=== PATIENT | male | born 1945 | race Caucasian/White ===

== ENCOUNTER → 2017-09-20 13:58 | Outpatient (CLI) | payer OTHER, SELFPAY ==
[2017-09-20 14:34] LABS: Add Manual Diff / Slide Review NO; Eosinophils Percent Auto 6.5 % (2-4); Hematocrit 42.2 % (41-53); Hemoglobin 14.9 g/dL (13.5-17.5); Lymphocytes Percent Auto 29.1 % (25-40); Mean Corpuscular HGB Conc 35.2 % (30-36); Mean Corpuscular Hemoglobin 34.4 PG (26-34); Mean Corpuscular Volume 97.7 fL (80-100); Monocytes Percent Auto 11.9 % (3-14); Neutrophils Absolute Auto 2700 /uL (3000-5900); Neutrophils Percent Auto 51.5 % (50-75); Platelet Count 204 X10^3/uL (150-400); Red Blood Cell Count 4.32 X10^6/uL (4.5-5.9); Red Cell Distribution Width 12.7 % (11.6-14.8); White Blood Cell Count 5.2 X10^3/uL (4.5-11.0)
[2017-09-20 14:52] LABS: Alanine Aminotransferase 37 IU/L (21-72); Albumin 4.4 g/dL (3.5-5.0); Albumin Globulin Ratio 1.4 (1.0-2.8); Alkaline Phosphatase 51 U/L (38-126); Aspartate Aminotransferase 29 IU/L (17-59); BUN Creatinine Ratio 33.3 (6-22); Bilirubin Total 0.8 mg/dL (0.2-1.3); Blood Urea Nitrogen 20 mg/dL (9-20); Calcium 9.6 mg/dL (8.4-10.2); Carbon Dioxide 24 mmol/L (22-32); Chloride 92 mmol/L (98-107); Estimated Glomerular Filt Rate > 60.0 mL/min (>60); Globulin 3.2 g/dL (1.7-4.1); Glucose 95 mg/dL (80-110); HEMOLYSIS < 15 (0-50); Potassium 3.8 mmol/L (3.4-5.1); Sodium 129 mmol/L (137-145); Total Protein 7.6 g/dL (6.3-8.2)
[2017-09-20 14:56] LABS: Rheumatoid Factor < 8.6 IU/mL (<12.0)
[2017-09-20 16:01] LABS: C-Reactive Protein Quant < 0.5 mg/dL (<1.0)
[2017-09-20 16:44] LABS: Erythrocyte Sedimentation Rate 8 MM/HR (0-15)
[2017-09-22 15:51] LABS: Free Kappa Light Chain 88.4 mg/L (3.3-19.4); Free Kappa/ Lambda Ratio 6.28 (0.26-1.65); Free Lambda 14.1 mg/L (5.7-26.3)
[2017-09-23 13:32] LABS: Albumin 4.3 g/dL (3.8-4.8); Alpha 1 Globulin 0.3 g/dL (0.2-0.3); Alpha 2 Globulin 0.6 g/dL (0.5-0.9); Beta 1 Globulin 0.5 g/dL (0.4-0.6)
== END ==
PROVIDERS: Family Provider Internal Medicine; PCP Internal Medicine; Visit Provider Nurse Practitioner Gerontology
DX: D47.2 Monoclonal gammopathy (principal)
CPT/HCPCS: 36415; 80053; 83883; 84155; 84165; 85025; 85651; 86140; 86430

== ENCOUNTER → 2018-03-19 14:05 | Outpatient (CLI) | payer OTHER, SELFPAY ==
[2018-03-19 15:17] LABS: Add Manual Diff / Slide Review NO; Basophils Percent Auto 0.9 % (0-2); Eosinophils Percent Auto 5.8 % (2-4); Hematocrit 42.4 % (41-53); Hemoglobin 14.8 g/dL (13.5-17.5); Lymphocytes Percent Auto 21.5 % (25-40); Mean Corpuscular HGB Conc 34.8 % (30-36); Mean Corpuscular Hemoglobin 34.3 PG (26-34); Mean Corpuscular Volume 98.3 fL (80-100); Monocytes Percent Auto 9.4 % (3-14); Neutrophils Absolute Auto 3900 /uL (3000-5900); Neutrophils Percent Auto 62.4 % (50-75); Platelet Count 210 X10^3/uL (150-400); Red Blood Cell Count 4.32 X10^6/uL (4.5-5.9); Red Cell Distribution Width 12.2 % (11.6-14.8); White Blood Cell Count 6.2 X10^3/uL (4.5-11.0)
[2018-03-19 15:41] LABS: HEMOLYSIS < 15 (0-50)
[2018-03-19 15:48] LABS: Alanine Aminotransferase 31 IU/L (21-72); Albumin 4.5 g/dL (3.5-5.0); Albumin Globulin Ratio 1.6 (1.0-2.8); Alkaline Phosphatase 45 U/L (38-126); Aspartate Aminotransferase 27 IU/L (17-59); BUN Creatinine Ratio 23.3 (6-22); Bilirubin Total 0.9 mg/dL (0.2-1.3); Blood Urea Nitrogen 21 mg/dL (9-20); Calcium 9.6 mg/dL (8.4-10.2); Carbon Dioxide 24 mmol/L (22-32); Chloride 93 mmol/L (98-107); Estimated Glomerular Filt Rate > 60.0 mL/min (>60); Globulin 2.9 g/dL (1.7-4.1); Glucose 96 mg/dL (80-110); Potassium 4.1 mmol/L (3.4-5.1); Sodium 130 mmol/L (137-145); Total Protein 7.4 g/dL (6.3-8.2)
[2018-03-19 15:49] LABS: C-Reactive Protein Quant < 0.5 mg/dL (<1.0)
[2018-03-19 15:51] LABS: Rheumatoid Factor < 8.6 IU/mL (<12.0)
[2018-03-19 16:06] LABS: Erythrocyte Sedimentation Rate 7 MM/HR (0-15)
[2018-03-21 13:58] LABS: Free Kappa Light Chain 105.5 mg/L (3.3-19.4); Free Kappa/ Lambda Ratio 7.46 (0.26-1.65); Free Lambda 14.1 mg/L (5.7-26.3)
[2018-03-22 16:25] LABS: Abnormal Protein Band 1 0.1 g/dL (NONE DETECTED); Alpha 1 Globulin 0.2 g/dL (0.2-0.3); Alpha 2 Globulin 0.6 g/dL (0.5-0.9); Beta 1 Globulin 0.5 g/dL (0.4-0.6); Protein, Total 6.7 g/dL (6.1-8.1)
== END ==
PROVIDERS: Family Provider Internal Medicine; PCP Internal Medicine; Visit Provider Internal Medicine Hematology & Oncology
DX: D47.2 Monoclonal gammopathy (principal)
CPT/HCPCS: 36415; 80053; 83883; 84155; 84165; 85025; 85651; 86140; 86430

== ENCOUNTER → 2019-04-23 13:44 | Outpatient (CLI) | payer OTHER, SELFPAY ==
[2019-04-23 14:25] LABS: Lactate Dehydrogenase 450 U/L (313-618)
[2019-04-25 15:13] LABS: Immunoglobulin A 268 mg/dL (70-320); Immunoglobulin G, Quantitative 1179 mg/dL (600-1540); Immunoglobulin M, Quantitative 55 mg/dL (50-300)
[2019-04-25 16:36] LABS: Free Kappa Light Chain 128.1 mg/L (3.3-19.4); Free Kappa/ Lambda Ratio 8.18 (0.26-1.65); Free Lambda 15.7 mg/L (5.7-26.3)
[2019-04-26 14:55] LABS: Beta-2-Microglobulin 2.42 mg/L (< 2.52)
[2019-04-27 17:21] LABS: Abnormal Protein Band 1 0.2 g/dL (NONE DETECTED); Alpha 1 Globulin 0.3 g/dL (0.2-0.3); Alpha 2 Globulin 0.8 g/dL (0.5-0.9); Beta 1 Globulin 0.5 g/dL (0.4-0.6)
== END ==
PROVIDERS: PCP Internal Medicine; Visit Provider Internal Medicine Hematology & Oncology
DX: D47.2 Monoclonal gammopathy (principal)
CPT/HCPCS: 36415; 82232; 82784; 83615; 83883; 84155; 84165

== ENCOUNTER → 2019-06-06 08:48 | Outpatient (CLI) | payer OTHER, SELFPAY ==
[2019-06-06 09:40] LABS: Blood Urea Nitrogen 12 mg/dL (9-20); Calcium 10.5 mg/dL (8.4-10.2); Carbon Dioxide 30 mmol/L (22-32); Chloride 94 mmol/L (98-107); Cholesterol 234 mg/dL (140-199); Estimated Glomerular Filt Rate > 60.0 mL/min (>60); Glucose 115 mg/dL (80-110); HEMOLYSIS < 15 (0-50); Potassium 4.8 mmol/L (3.4-5.1); Sodium 132 mmol/L (137-145); Triglycerides 81 mg/dL (35-150)
[2019-06-06 10:00] LABS: HDL Cholesterol 71 mg/dL (40-60); LDL Cholesterol Calculated 147 mg/dL (<100)
[2019-06-08 13:28] LABS: PSA Total 1.18 ng/mL (< 4.01)
== END ==
PROVIDERS: PCP Internal Medicine; Referring Provider Internal Medicine; Visit Provider Internal Medicine
DX: Z12.5 Encounter for screening for malignant neoplasm of prostate (principal); I10 Essential (primary) hypertension; E78.00 Pure hypercholesterolemia, unspecified
CPT/HCPCS: 36415; 80048; 80061; 84153; 84154

== ENCOUNTER → 2019-11-26 09:23 | Outpatient (CLI) | payer OTHER, SELFPAY ==
--- NOTE | 2019-11-26 09:24 | DI.US.S_ITS ---
PROCEDURE: US PERIPH VENOUS LOW EXTREM RT INDICATIONS: EDEMA TECHNIQUE: Real-time imaging, as well as color and pulse Doppler interrogation, were performed of the lower extremity deep veins from the inguinal ligament to the popliteal fossa. COMPARISON: None. FINDINGS: The common femoral, femoral and popliteal veins are normally compressible, and free of intraluminal thrombus. Color and pulse Doppler demonstrate normal phasic intraluminal flow. There is normal augmentation response to distal compression maneuver. IMPRESSION: No right lower extremity DVT. Dictated by: Brandon Peck M.D. on 11/26/2019 at 11:26 Approved by: Brandon Peck M.D. on 11/26/2019 at 11:27
== END ==
PROVIDERS: PCP Internal Medicine; Referring Provider Internal Medicine; Visit Provider Internal Medicine Hematology & Oncology
DX: D47.2 Monoclonal gammopathy (principal); R60.0 Localized edema
CPT/HCPCS: 93971

== ENCOUNTER → 2021-09-15 08:13 | Outpatient (CLI) | payer OTHER, SELFPAY ==
--- NOTE | 2021-09-15 | DI.RAD.S_ITS ---
PROCEDURE: FL BARIUM SWALLOW W SPEECH INDICATIONS: Dysphagia, unspecified COMPARISON: None. TECHNIQUE: Examination was conducted in conjunction with speech pathology per standard protocol. In the lateral projection, filming was performed of the patient swallowing. AP projection filming may also be performed with patient swallowing. COMPARISON: FINDINGS: Function: The oral preparatory phase appears normal, with proper containment. The subsequent oral propulsive phase, pharyngeal phase, and esophageal phase of swallowing also appear normal with all proffered substances. No laryngotracheal penetration or aspiration. No pathologic vallecular pooling. Morphology: No cricopharyngeal bar is identified. No cervical esophageal webs. No Zenker's diverticulum. Stricture with irregular margins is noted in the mid esophagus. The mid esophageal stricture impeded passage of 13 millimeter tablet. 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 Recommend gastroenterology consultation for endoscopy. Dictated by: Pratima Danielson MD, PhD on 09/15/2021 at 9:00 Approved by: Pratima Danielson MD, PhD on 09/15/2021 at 9:01
--- NOTE | 2021-09-15 16:38 | ST.SWALLOW ---
Visit Care Team Role Provider Type Misa Cowan MD Attending Provider Physician Primary Care Provider Referring Provider Specialty: Internal Medicine Address: [address] [place] [address], [id number] Email: [email or web address] Modified Barium Swallow Study CLEANING CUSTODIAN Modified Barium Swallow Study Start: 09/15/21 09:22 Freq: Status: Active Protocol: Document 09/15/21 09:22 ZS (Rec: 09/15/21 09:29 ZS [id number]) Modified Barium Swallow Study Total Time Visit Start Time 08:30 Visit Stop Time 09:00 Total Visit Minutes 30 Setting Setting Outpatient Care Patient Information Identification Type Name Patient History Orlando is a 76 year old male who reported a feeling of his throat constricting when he is swallowing. He reported solids are more difficult than liquids, with soup being difficult at the worst in early August. Pt reported this has been going on for months but improved recently with the discontinuation of a medication. Pt has a history of post-nasal drip with use of nasal spray and a left side thyroid nodule. Subjective Observations Pt was ambulatory, alert, and oriented. Provided information regarding procedure and process and pt agreed to participate. Patient Positioning Position View Lat-A/P Imaging Lateral View Textures Administered Trials Presented Thin Liquid via Cup,Pudding Thick Liquid via Spoon,Regular Textures Oral Phase Source: MBSIMP (TM) (C) Bolus Specific Scoring Grid Lip Closure No Impairment (WNL) Tongue Control During Bolus Hold Mild Impairment Bolus Prep/Mastication No Impairment (WNL) Bolus Transport/Lingual Motion No Impairment (WNL) A/P Lingual Propulsion Delay No Oral Residue Mild Impairment Residue Clearing No Impairment (WNL) Nasal Regurgitation No Additional Oral Phase Observations Pt exhibited no anterior loss of bolus, demonstrated mastication WNL, and a/p propulsion WNL. Mild oral residue observed following swallow, which pt cleared independently with second swallow. Pharyngeal Phase Source: MBSIMP (TM) (C) Bolus Specific Scoring Grid Delayed Initiation of Pharyngeal Swallow Yes: Head of bolus in valleculae Soft Palate Elevation No Impairment (WNL) Tongue Base Strength/Range of Motion No Impairment (WNL) Residue Along the Tongue Base No Laryngeal Elevation No Impairment (WNL) Anterior Hyoid Movement Mild Impairment Epiglottic Range of Motion No Impairment (WNL) Vallecular Residue Yes Clearance of Vallecular Residue WFL Laryngeal Vestibular Closure No Impairment (WNL) Pharyngeal Stripping Wave No Impairment (WNL) Upper Esophageal Sphincter Opening Mild Impairment Residue in the Pyriform Sinuses Yes Clearance of Residue in the Pyriform WFL Sinuses Esophageal Clearance Upright Position Severe Impairment Additional Pharyngeal Phase Observations Pt demonstrated delayed swallow initiation, with the head of the bolus in the valleculae at swallow initiation. Laryngeal vestibular closure was WNL despite reduced anterior hyoid movement. Mild reduction in PES opening, with retention of small quantity of bolus. Mild pharyngeal residue observed in valleculae and pyriforms, which pt cleared independently WFL with an additional swallow. A/P View Textures Administered Trials Presented Barium Tablet A/P View Observations Esophageal Function Slowed Clearing,Reverse Peristalsis,Stasis,Narrowing Esophageal Clearance Upright Position Severe Impairment Additional Observations Observed obstruction with bolus stationary and mild backflow below level of PES. Pt able to clear most of obstruction with several swallows of water. Completed trial with barium tablet, which was stopped at narrowing of esophagus and did not pass at the conclusion of the study. 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 Clinical Impressions Findings Pt presents with swallow WNL. Narrowing of esophagus observed, which negatively impedes flow of bolus to stomach. Per radiologist report: mid esophageal stricture with irregular margins highly suspicious for neoplastic process. Recommend GI referral for further imaging of stricture. Recommend thin liquid and regular solids. Alternate liquids and solids with small bites of solids to help increase comfort while eating. Patient Appropriate for Therapy No Recommendations Diet Liquids Order Thin Diet Order Regular Medication Recommendation As Tolerated Aspiration Precautions Recommended Precautions Upright at 90 Degrees, Alternate Liquids/Solids, Frequent Rest Periods,Small Bites/Sips Treatment Plan Recommended Referrals GI Consult Compensatory Strategies Recommendations Sitting Upright (90 deg),Small Bites and Sips,Alternate Liquids/Solids Placement Recommendation After Discharge Home
== END ==
PROVIDERS: PCP Internal Medicine; Referring Provider Internal Medicine; Visit Provider Internal Medicine
DX: K22.2 Esophageal obstruction (principal); R13.10 Dysphagia, unspecified
CPT/HCPCS: 74230; 92611

== ENCOUNTER → 2021-10-13 13:39 | Outpatient (CLI) | payer OTHER, SELFPAY ==
--- NOTE | 2021-10-13 13:42 | DI.RAD.S_ITS ---
PROCEDURE: XR CHEST 2V INDICATIONS: COUGH TECHNIQUE: 2 views of the chest were acquired. COMPARISON: None. FINDINGS: Surgical changes and devices: None. Lungs and pleura: Mild pulmonary vascular congestion is seen. No definite focal infiltrate. Blunting of bilateral pasta phrenic angles posteriorly is seen suggestive of trace bilateral pleural effusion. No pneumothorax. Mediastinum: Tortuous thoracic aorta with aortic arch calcifications are seen. Heart size is mildly enlarged. Bones and chest wall: No suspicious bony abnormalities. Soft tissues appear unremarkable. IMPRESSION: Cardiomegaly and mild congestion. Mild pulmonary edema. No definite focal infiltrate or pneumothorax. Suggestion of trace bilateral pleural effusion. Dictated by: Morgan Rg M.D. on 10/13/2021 at 15:15 Approved by: Morgan Rg M.D. on 10/13/2021 at 15:21
== END ==
PROVIDERS: PCP Internal Medicine; Referring Provider Internal Medicine; Visit Provider Internal Medicine
DX: I51.7 Cardiomegaly (principal); J81.1 Chronic pulmonary edema
CPT/HCPCS: 71046

== ENCOUNTER → 2021-11-05 07:56 | Outpatient (CLI) | payer OTHER, SELFPAY ==
--- NOTE | 2021-11-05 07:57 | DI.ECHO.S_ITS ---
[facility] +---------+ : : [address] : : : : [id number] : : : : Phone: [phone] Echocardiogram Report + + :Name: VY PALAFOX Study Date: 11/05/2021 Height: 64 in : [id number] ReadingLocation: Weight: 157 lb : : Gender: Male BSA: 1.8 m2 : :: 1945 Age: 76 yrs BP: 120/75 mmHg: :Reason For Study: Edema : :Ordering Physician: YUE, : :JONI Performed By: Michael Plunkett : :Referring: JONI TURNER : + + Interpretation Summary Normal sinus rhythm. Normal LV size, wall thickness, wall motion and LV systolic function. EF is 60-65%. Stage I diastolic dysfunction. Mild biatrial enlargement. No significant valvular abnormalities. No prior study available for comparison. Procedure: A two-dimensional transthoracic echocardiogram with color flow and Doppler was performed. The study quality was technically adequate. There is no prior echocardiogram noted for this patient. The patient was in normal sinus rhythm during the exam. Left Ventricle: The left ventricle is normal in size and wall thickness. Proximal septal thickening is noted. Left ventricular systolic function is normal. The ejection fraction is estimated to be 60-65%. There are no focal wall motion abnormalities. Diastolic parameters suggest a relaxation abnormality of the left ventricle, consistent with probable normal filling pressures. Right Ventricle: The right ventricle is normal in size and function. Atria: Both atria are mildly dilated. Right atrial size is normal. The interatrial septum grossly appears intact with no obvious evidence for an atrial septal defect. Mitral Valve: The mitral valve is normal in structure and function. There is mild mitral regurgitation. Aortic Valve: The aortic valve is normal in structure and function. There is trace aortic regurgitation. Tricuspid Valve: The tricuspid valve is normal in structure and function. There is a trace or physiologic amount of tricuspid regurgitation. Pulmonary artery pressures cannot be estimated because of the lack of a measurable TR jet velocity. Pulmonic Valve: The pulmonic valve is normal in structure and function. There is a trace or physiologic amount of pulmonic regurgitation. Great Vessels: The aortic root is normal size. The dimensions of the ascending aorta are normal. The IVC is of normal diameter and collapses greater than 50% with a sniff. This suggests a low right atrial pressure of 3 mm Hg. Pericardium/ Pleura There is no pericardial effusion. There is no pleural effusion. MMode/2D Measurements & Calculations LVIDd: 5.4 cm LVOT diam: 2.1 cm LVIDs: 3.2 cm Ao root diam: 3.4 cm FS: 40.8 % asc Aorta Diam: 3.4 cm IVSd: 0.97 cm LVPWd: 0.87 cm LV sorensen. diameter/BSA (cm/m^2): 3.0 LV sys. diameter/BSA (cm/m^2): 1.8 LA A2 area: 21.3 cm2 RA long axis: 5.6 cm LA A4 area: 24.1 cm2 RA area: 13.5 cm2 LA length (vol): 6.3 cm RA vol: 27.6 ml LA vol: 69.8 ml RA : 15.7 ml/m2 LA vol index: 39.5 ml/m2 TAPSE: 1.8 cm Doppler Measurements & Calculations Ao V2 max: 142.8 cm/sec LVOT Max Ronan: 122.7 cm/sec Ao V2 mean: 97.4 cm/sec LV V1 max P.0 mmHg Ao max P.2 mmHg LV V1 VTI: 24.2 cm Ao mean P.3 mmHg JEROME(I,D): 3.0 cm2 Ao V2 VTI: 29.3 cm JEROME(V,D): 3.1 cm2 sev ratio: 0.83 JEROME indexed to BSA (cm^2/m^2): 1.7 MV E max ronan: 46.5 cm/sec SV(LVOT): 87.4 ml MV A max ronan: 71.6 cm/sec MV E/A: 0.65 Med Peak E' Ronan: 5.2 cm/sec E/E' med: 9.0 Lat Peak E' Ronan: 10.7 cm/sec E/E' lat: 4.3 E/e' average: 6.6 MV dec time: 0.28 sec Electronically signed by: Xenia Morales M.D. on Reading Physician:11/06/2021 12:28 AM
== END ==
PROVIDERS: PCP Internal Medicine; Referring Provider Internal Medicine; Visit Provider Internal Medicine
DX: I34.0 Nonrheumatic mitral (valve) insufficiency (principal); J81.0 Acute pulmonary edema
CPT/HCPCS: 93306

== ENCOUNTER → 2022-02-02 14:39 | Outpatient (CLI) | payer OTHER, SELFPAY ==
[2022-02-02 17:34] LABS: COVID19 -Nasal RAPID Negative (Negative)
== END ==
PROVIDERS: PCP Family Medicine; Visit Provider Surgery
DX: Z20.822 Contact with and (suspected) exposure to COVID-19 (principal); Z01.812 Encounter for preprocedural laboratory examination
CPT/HCPCS: 87635; C9803

== ENCOUNTER 2022-02-03 14:04 | Day surgery (SDC) | payer OTHER, SELFPAY ==
--- NOTE | 2022-02-03 | PATH_ITS ---
[facility] Accession Number: [id number] No. of containers..02 Tissue . 01 Material submitted: . PART A: colon - ASCENDING COLON POLYP PART B: colon - TRANSVERSE COLON POLYP X2 . 01 Diagnosis: A. Ascending Colon, Polyp, Biopsy: Colonic mucosa with mild surface hyperplastic-type changes. Additional levels were examined. Negative for dysplasia and malignancy. . B. Transverse Colon, Polyp x2, Biopsy: Tubular adenoma in two of three fragments. Sessile serrated adenoma, one fragment. MRV 02/08/2022 1550 Local . 01 Electronically signed: . Teresa Myers MD, Pathologist NPI- [id number] . 01 Gross description: . Part A: ASCENDING COLON POLYP: Received in formalin are 2 fragment(s) of dahl, soft tissue measuring 0.1 x 0.1 x 0.1 cm to 0.3 x 0.2 x 0.2 cm submitted entirely in 1 cassette(s) Part B: TRANSVERSE COLON POLYP X2: Received in formalin are 3 fragment(s) of dahl, soft tissue measuring 0.1 x 0.1 x 0.1 cm to 0.4 x 0.4 x 0.2 cm submitted entirely in 1 cassette(s) /ALPHONSE 02/04/2022 2315 Local . 01 Pathologist provided ICD-10: D12.3 . 01 CPT . 692376, 514681 Specimen Comment: A courtesy copy of this report has been sent to [phone] Performed at: 01 [facility] [address] [place] [address] [address], [place], [place] [id number] MD Jak Holder MD Phone: [phone]
[2022-02-03 14:14] VITALS: BP 170/92; PULSE 77; RESP 16; TEMP 36.8; O2SAT 97; BMI 26.6
--- NOTE | 2022-02-03 14:45 | P.HP_ITS ---
History of Present Illness History of Present Illness Date Patient Seen: 02/03/22 Time Patient Seen: 14:45 Chief complaint: Colonoscopy Narrative: The patient presents for colorectal screening. Most recent colonoscopy 5 years ago significant for several benign polyps.. No personal or family history of colon cancer. On further history denies any recent gastrointestinal symptoms. No nausea, vomiting, abdominal pain, loss of appetite, unexplained weight loss, change in bowel habits, diarrhea, constipation, melena, hematochezia, or bright red blood per rectum. Patient History Medical History Glaucoma (~2009) Hyperlipidemia Hypertension (~2007) Surgical History Anesthesia History of colonoscopy (~2011) History of endoscopy (~2021) Family & Social History Family History Mother Congestive heart failure Social History: household members spouse Tobacco & Substance use: Smoking Status Former smoker alcohol intake current alcohol intake frequency 0-2 drinks per day Meds Home Medications and Allergies Home Medications Medication Instructions Recorded Confirmed Type amlodipine 5 mg tablet (Norvasc) 5 mg PO QDAY ##0 09/05/16 02/03/22 History latanoprost 0.005 % eye drops 1 drp OPHTH HS ##0 09/05/16 12/09/21 History timolol maleate 0.25 % eye drops 1 drp OPHTH BID ##0 09/05/16 02/03/22 History (Timoptic) lisinopril 40 mg tablet 40 mg PO DAILY 06/14/21 12/09/21 History rosuvastatin 5 mg tablet 5 mg PO DAILY 06/14/21 02/03/22 History omeprazole 40 mg capsule,delayed 40 mg PO BID 11/18/21 02/03/22 History release Allergies Allergy/AdvReac Type Severity Reaction Status Date / Time No Known Allergies Allergy Uncoded 02/03/22 14:34 Exam Vital Signs (past 8 hours): - 02/03/22 14:14 Temperature 98.2 F Pulse Rate 77 Respiratory Rate 16 Blood Pressure 170/92 H Pulse Oximetry 97 Oxygen Delivery Method Room Air Oxygen Delivery Method Room Air Narrative Exam Narrative: General adult male alert oriented no acute distress Chest nonlabored respiration Extremities warm well perfused Assessment & Plan Assessment & Plan narrative: The patient requires colorectal screening and colonoscopy is recommended. T echnical details were discussed. Risks, benefits, alternatives explained. Risks including but not limited to myocardial infarction, aspiration, bleeding, pain, missed lesion, incomplete examination, need for further radiographic studies, colonic perforation, and need for major abdominal surgery were discussed. All questions were answered to their satisfaction, and they are in agreement with this plan. Time Spent With Patient Critical Care time: I spent a total of [] minutes of critical care time on this patient's care today; this time is exclusive of procedural time.
--- NOTE | 2022-02-03 14:46 | PM.OP.COLON ---
Operative Date/Time/Diagnoses Date of procedure: 02/03/22 Time of procedure: 14:47 Pre-op diagnosis: Personal history of colonic polyps Post-op diagnosis: same Procedure & Clinicians Study performed: Colonoscopy Same procedure as scheduled: Yes Indications: Personal history of colonic polyps Surgeon: Emigdio Hernandes Procedure Notes Procedure in detail: Medications: Conscious sedation using 5mg IV midazolam and 150mcg IV of fentanyl The history and physical was performed/updated and the patient is ASA class is 2. The procedure was discussed in detail with the patient. Potential risks complications including infection, bleeding, missed diagnosis, perforation, need for surgery, and were explained. Their questions were answered and informed consent was obtained. Patient was brought to the procedure room and placed standard monitoring equipment. The patient's vital signs were monitored continuously throughout the entire procedure. Prior to starting time-out was performed. The patient was placed in the left lateral recumbent position. Procedural sedation was administered. Examination began with a thorough inspection of the perianal area there was no evidence of fissures, fistulae, external hemorrhoids or cutaneous malignancy. The colonoscopy scope was then placed into the anal canal and was advanced to the cecum, which was identified by the ileocecal valve, the appendiceal orifice and the confluence of the taenia. The scope was then slowly withdrawn examining colon thoroughly in all directions, irrigating it of any residual stool. FINDINGS 1. Ascending colon-3 mm polyp removed with biopsy forceps 2. Transverse: 3 mm polyps x2 removed with biopsy forceps. 3. Sigmoid extensive diverticulosis The patient tolerated the procedure well. They will be discharged once criteria are met. The prep was of good/excellent quality. The withdrawl time was 10 minutes. The sedation time was 25 minutes. Specimen(s): other (Transverse colon polyp x2, ascending colon polyp x1) Complications: none Impression: Colonic polyps Post-procedure Recommendations: High fiber diet and Will call with biopsy results Disposition: same day surgery
[2022-02-03] MEDS: LACTATED RINGERS 1,000 ML 200 ML IV (15:00)
[2022-02-03] MEDS: fentaNYL 100 MCG/2 ML INJ IV (15:23)
[2022-02-03] MEDS: MIDAZOLAM 5 MG/5 ML VIAL IV (15:23)
[2022-02-03 15:25] VITALS: BP 117/70; PULSE 61; RESP 16; TEMP 36.4; O2SAT 100
[2022-02-03 15:31] VITALS: BP 120/69; PULSE 59; RESP 16; O2SAT 100
[2022-02-03 15:36] VITALS: BP 125/75; PULSE 68; RESP 18; TEMP 36.5; O2SAT 98
[2022-02-03 15:44] VITALS: BP 125/75; PULSE 58; RESP 16; TEMP 37; O2SAT 97
== END 2022-02-03 15:57 | disposition home or self-care (01) ==
PROVIDERS: PCP Family Medicine; Referring Provider Surgery; Visit Provider Surgery
PROC: 0DJD8ZZ Inspection of Lower Intestinal Tract, Via Natural or Artificial Opening Endoscopic (ICD-10-PCS; CPT 45378; principal; 2022-02-03 15:15)
DX: Z12.11 Encounter for screening for malignant neoplasm of colon (principal); Z86.010 Personal history of colon polyps; I10 Essential (primary) hypertension; E78.5 Hyperlipidemia, unspecified; K57.30 Diverticulosis of large intestine without perforation or abscess without bleeding; D12.3 Benign neoplasm of transverse colon
CPT/HCPCS: 45380; 99152; 99153; J2250; J3010

== ENCOUNTER → 2022-06-02 08:55 | Outpatient (CLI) | payer OTHER, SELFPAY ==
[2022-06-02 09:49] LABS: Cholesterol 181 mg/dL (140-199); HDL Cholesterol 77 mg/dL (40-60); LDL Cholesterol Calculated 86 mg/dL (<100); Triglycerides 92 mg/dL (35-150)
[2022-06-02 10:18] LABS: Prostate Specific Antigen Scrn 0.839 ng/mL (0.1-4.0)
[2022-06-02 12:15] LABS: Creatinine Urine Random 25.3 mg/dL
[2022-06-02 12:19] LABS: Microalbumi Creatinin Ratio Ur 23.7 ug/mg CR (<30); Microalbumin Urine Random 0.6 mg/dL (0-1.6)
== END ==
PROVIDERS: PCP Family Medicine; Referring Provider Family Medicine; Visit Provider Family Medicine
DX: E78.2 Mixed hyperlipidemia (principal); Z12.5 Encounter for screening for malignant neoplasm of prostate; D47.2 Monoclonal gammopathy; I10 Essential (primary) hypertension
CPT/HCPCS: 36415; 80061; 82043; 82570; G0103

== ENCOUNTER 2022-08-03 11:57 | Day surgery (SDC) | payer OTHER, SELFPAY ==
--- NOTE | 2022-08-03 | PATH_ITS ---
[facility] Accession Number: [id number] No. of containers..06 Tissue . 01 Material submitted: . PART A: gastrointestinal site - GASTRIC BIOPSY AT 39CM PART B: gastrointestinal site - GASTRIC BIOPSY AT 37CM PART C: gastrointestinal site - GASTRIC BIOPSY AT 35;SCTRICTURE PART D: gastrointestinal site - GASTRIC BIOPSY AT 33CM PART E: gastrointestinal site - GASTRIC BIOPSY AT 31CM PART F: gastrointestinal site - GASTRIC BIOPSY AT 29cm . 01 Diagnosis: A-C. 39-35 cm, Biopsies: Proximal gastric mucosa with mild chronic inflammation. Negative for specialized intestinal metaplasia, dysplasia or malignancy. . D-F: 33-29 cm, Biopsies: Proximal gastric type mucosa with specialized intestinal metaplasia, consistent with Collins's esophagus. Negative for dysplasia or malignancy. [facility] 08/08/2022 1146 Local . 01 Electronically signed: . Jose Miguel Art MD, PhD, Pathologist NPI- [id number] . 01 Gross description: . Part A: GASTRIC BIOPSY AT 39CM: Received in formalin are 4 fragment(s) of dahl, soft tissue measuring 0.5 x 0.2 x 0.1 cm to 0.1 x 0.1 x 0.1 cm submitted entirely in 1 cassette(s) Part B: GASTRIC BIOPSY AT 37CM: Received in formalin are 2 fragment(s) of dahl, soft tissue measuring 0.3 x 0.2 x 0.2 cm to 0.2 x 0.2 x 0.2 cm submitted entirely in 1 cassette(s) Part C: GASTRIC BIOPSY AT 35;SCTRICTURE: Received in formalin are 2 fragment(s) of dahl, soft tissue measuring 0.4 x 0.1 x 0.1 cm to 0.2 x 0.2 x 0.1 cm submitted entirely in 1 cassette(s) Part D: GASTRIC BIOPSY AT 33CM: Received in formalin are 4 fragment(s) of dahl, soft tissue measuring 0.3 x 0.1 x 0.1 cm to 0.1 x 0.1 x 0.1 cm submitted entirely in 1 cassette(s) Part E: GASTRIC BIOPSY AT 31CM: Received in formalin are 4 fragment(s) of dahl, soft tissue measuring 0.4 x 0.1 x 0.1 cm to 0.2 x 0.1 x 0.1 cm submitted entirely in 1 cassette(s) Part F: GASTRIC BIOPSY AT 29cm: Received in formalin are 2 fragment(s) of dahl, soft tissue measuring 0.2 x 0.1 x 0.1 cm to 0.2 x 0.1 x 0.1 cm submitted entirely in 1 cassette(s) /CPE 08/04/2022 0717 Local . 01 Pathologist provided ICD-10: K22.70 . 01 CPT . 061751, 290463, 746079, 001826, 382904, 234457 Specimen Comment: A courtesy copy of this report has been sent to [phone] Performed at: 01 [facility] [address] [place] [address] [address] [facility], [place], [place] [id number] MD Jak Holder MD Phone: [phone]
[2022-08-03 12:23] VITALS: BP 166/89; PULSE 85; RESP 17; TEMP 36.4; O2SAT 99; BMI 26.6
[2022-08-03] MEDS: LACTATED RINGERS 1,000 ML 42 ML IV (12:31)
--- NOTE | 2022-08-03 13:23 | P.HP_ITS ---
History of Present Illness History of Present Illness Date Patient Seen: 08/03/22 Chief complaint: EGD Narrative: History of esophagitis and Collins's esophagus [facility] Medical History Glaucoma (~2009) Hyperlipidemia Hypertension (~2007) Surgical History (Updated 06/06/22 @ 13:06 by Johan Prasad MD) Anesthesia History of colonoscopy (~2011) History of endoscopy (~2021) Family History Mother Congestive heart failure Social History household members: spouse Smoking Status: Former smoker alcohol intake: current Meds Home Medications and Allergies Home Medications Medication Instructions Recorded Confirmed Type latanoprost 0.005 % eye drops 1 drp OPHTH HS ##0 09/05/16 06/06/22 History timolol maleate 0.25 % eye drops 1 drp OPHTH BID ##0 09/05/16 08/03/22 History (Timoptic) losartan 100 mg tablet 100 mg PO DAILY #90 tabs 06/06/22 08/03/22 Rx omeprazole 40 mg capsule,delayed 40 mg PO DAILY 06/06/22 08/03/22 History release amlodipine 5 mg tablet (Norvasc) 5 mg PO QDAY #90 tabs 07/08/22 08/03/22 Rx furosemide 20 mg tablet 20 mg PO DAILY PRN Edema #90 tabs 07/08/22 08/03/22 Rx rosuvastatin 5 mg tablet 5 mg PO DAILY #90 tabs 07/08/22 08/03/22 Rx Allergies Allergy/AdvReac Type Severity Reaction Status Date / Time No Known Allergies Allergy Uncoded 02/03/22 14:34 Exam Vital Signs (past 8 hours): - 08/03/22 12:23 Temperature 97.6 F Pulse Rate 85 Respiratory Rate 17 Blood Pressure 166/89 H Pulse Oximetry 99 Oxygen Delivery Method Room Air Oxygen Delivery Method Room Air Narrative Exam Narrative: Oropharynx free of lesions Chest clear to auscultation percussion Cardiac exam reveals no S3 or murmur Assessment & Plan Assessment & Plan narrative: History of GE reflux with Collins's esophagus and esophagitis need for follow-up endoscopy. Risks, benefits, alternatives have been explained.
--- NOTE | 2022-08-03 13:25 | P.OP.EGD_ITS ---
Operative Date/Time/Diagnoses Date of procedure: 08/03/22 Pre-op diagnosis: See indication and findings Procedure & Clinicians Study performed: EGD Indications: Collins's esophagus C3 M4, with stricture though no current dysphagia. Last dilation 8 months ago Surgeon: Di Ibrahim Procedure Notes Procedure in detail: After informed consent was obtained the patient was placed in left lateral decubitus position. The video upper scope was placed into the oropharynx and with the patient's help swelled into the esophagus. The esophagus stomach and duodenum were carefully examined. On withdrawal retroflexed view the GE junction was performed. The scope was removed. The patient tolerated procedure well. Blood loss none Complications none Sedation mac Findings 1. Long segment Barretts esophagus [id number] [place] criteria. Four quadrant biopsies were taken at 39 cm, 37 cm, 35 cm (with mild stricture), 33 cm, and 31 cm. Two additional biopsies were taken above this level at 29 cm where there was no circumferential Collins's. 2. Small hiatal hernia 2 cm with the GE folds at 39 cm and diaphragmatic hiatus at 41 cm. 3. Normal stomach 4. Normal duodenal bulb and sweep We will merely await his biopsy results and whether not we should perform follow-up sooner than 3 years. In particular we should pay close attention to the biopsies at 35 cm with the stricture. Further recommendations will follow.
[2022-08-03 13:44] VITALS: BP 108/54; PULSE 73; RESP 20; TEMP 36.4; O2SAT 96
[2022-08-03 13:48] VITALS: BP 100/51; PULSE 73; RESP 19; O2SAT 97
[2022-08-03 13:52] VITALS: BP 110/72; PULSE 75; RESP 15; O2SAT 96
[2022-08-03 13:57] VITALS: BP 123/76; PULSE 63; RESP 17; O2SAT 99
[2022-08-03 14:10] VITALS: BP 141/76; PULSE 63; RESP 14; TEMP 36.1; O2SAT 97
== END 2022-08-03 14:10 | disposition home or self-care (01) ==
PROVIDERS: PCP Family Medicine; Referring Provider Internal Medicine Gastroenterology; Visit Provider Internal Medicine Gastroenterology
PROC: 0DJ08ZZ Inspection of Upper Intestinal Tract, Via Natural or Artificial Opening Endoscopic (ICD-10-PCS; CPT 43235; principal; 2022-08-03 13:00)
DX: K22.70 Barrett's esophagus without dysplasia (principal); K44.9 Diaphragmatic hernia without obstruction or gangrene; K29.50 Unspecified chronic gastritis without bleeding
CPT/HCPCS: 43239; J2704

== ENCOUNTER → 2023-07-10 11:41 | Outpatient (CLI) | payer OTHER, SELFPAY ==
[2023-07-10 12:59] LABS: Cholesterol 216 mg/dL (140-199); HDL Cholesterol 74 mg/dL (40-60); LDL Cholesterol Calculated 117 mg/dL (<100); Triglycerides 124 mg/dL (35-150)
[2023-07-10 13:28] LABS: TSH w/ Reflex to FT4 3.19 uIU/mL (0.47-4.68)
[2023-07-10 13:30] LABS: Prostate Specific Antigen Scrn 1.04 ng/mL (0.1-4.0)
[2023-07-10 15:38] LABS: Creatinine Urine Random 48.5 mg/dL
[2023-07-10 15:40] LABS: Microalbumi Creatinin Ratio Ur 14.4 ug/mg CR (<30); Microalbumin Urine Random 0.7 mg/dL (0-1.6)
[2023-07-11 07:48] LABS: Apolipoprotein B 91 mg/dL (<90)
== END ==
PROVIDERS: PCP Family Medicine; Referring Provider Family Medicine; Visit Provider Family Medicine
DX: Z00.00 Encounter for general adult medical examination without abnormal findings (principal); E78.5 Hyperlipidemia, unspecified; Z12.5 Encounter for screening for malignant neoplasm of prostate; I10 Essential (primary) hypertension; D47.2 Monoclonal gammopathy
CPT/HCPCS: 36415; 80061; 82043; 82172; 82570; 84443; G0103

== ENCOUNTER 2023-08-28 09:04 | Day surgery (SDC) | payer OTHER, SELFPAY ==
--- NOTE | 2023-08-28 | PATH_ITS ---
[facility] Accession Number: [id number] No. of containers..03 Tissue . 01 Material submitted: . PART A: colon - 31 PART B: colon - 29 PART C: colon - 27 . 01 Diagnosis: A. ESOPHAGUS, 31 CM, BIOPSY: Squamocolumnar junctional mucosa with specialized intestinal metaplasia, consistent with Collins's esophagus. Negative for dysplasia and malignancy. . B. ESOPHAGUS, 29 CM, BIOPSY: Specialized intestinal metaplasia consistent with Collins's esophagus. Negative for dysplasia and malignancy. . C. 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 Negative for dysplasia and malignancy. [facility] 09/05/2023 1159 Local . 01 Comment: Biopsy locations confirmed per procedure report. . 01 Electronically signed: . Teresa Myers MD, Pathologist NPI- [id number] . 01 Gross description: . A. Received in formalin with two identifiers and 31, are four dahl soft tissue fragments, 0.1 to 0.2 cm in greatest dimension. Submitted in A1. B. Received in formalin with two identifiers and 29, are multiple dahl soft tissue fragments aggregating to 0.4 x 0.2 x 0.1 cm. Filtered and submitted entirely in B1. C. Received in formalin with two identifiers and 27, are multiple dahl soft tissue fragments aggregating to 0.4 x 0.2 x 0.1 cm. Filtered and submitted entirely in C1. ([id number]) /MRV 08/31/2023 1438 Local . 01 Pathologist provided ICD-10: K22.70 . 01 CPT . 039717, [id number], 477061 Specimen Comment: A courtesy copy of this report has been sent to [phone] Performed at: 01 [facility] [address], [place], [place] [id number] MD Jak Holder MD Phone: [phone]
[2023-08-28 09:27] VITALS: BP 143/78; PULSE 61; RESP 14; TEMP 36.1; O2SAT 98
[2023-08-28] MEDS: LACTATED RINGERS 1,000 ML 42 ML IV (09:45)
--- NOTE | 2023-08-28 10:12 | PM.HP.1 ---
History of Present Illness History of Present Illness Date Patient Seen: 08/28/23 Chief complaint: EGD Narrative: GE reflux with history of Collins's esophagus and the underlying strictures need for follow-up endoscopy to ensure complete healing [facility] [place] Medical History (Updated 09/15/22 @ 11:34 by Quintin Altamirano MD) Hyperlipidemia Glaucoma (~2009) Hypertension (~2007) Surgical History (Updated 06/06/22 @ 13:06 by Johan Prasad MD) Anesthesia History of endoscopy (~2021) History of colonoscopy (~2011) Family History Mother Congestive heart failure Social History household members: spouse Smoking Status: Never smoker alcohol intake: current Meds Home Medications and Allergies Home Medications Medication Instructions Recorded Confirmed Type latanoprost 0.005 % eye drops 1 drp OPHTH HS ##0 09/05/16 08/28/23 History timolol maleate 0.25 % eye drops 1 drp OPHTH BID ##0 09/05/16 07/06/23 History (Timoptic) omeprazole 40 mg capsule,delayed 40 mg PO DAILY 06/06/22 08/28/23 History release amlodipine 5 mg tablet (Norvasc) 5 mg PO QDAY #90 tabs 07/08/22 08/28/23 Rx furosemide 20 mg tablet 20 mg PO DAILY PRN Edema #90 tabs 07/08/22 08/28/23 Rx losartan 100 mg tablet 100 mg PO DAILY #90 tabs 05/15/23 08/28/23 Rx rosuvastatin 10 mg tablet 10 mg PO DAILY #90 tabs 07/17/23 08/28/23 Rx Allergies Allergy/AdvReac Type Severity Reaction Status Date / Time No Known Drug Allergies Allergy Verified 08/28/23 09:48 Exam Vital Signs (past 8 hours): - 08/28/23 09:27 Temperature 97 F L Pulse Rate 61 Respiratory Rate 14 Blood Pressure 143/78 H Pulse Oximetry 98 Oxygen Delivery Method Room Air Oxygen Delivery Method Room Air Narrative Exam Narrative: Oropharynx free of lesions Chest clear to auscultation percussion Cardiac exam reveals no S3 or murmur Assessment & Plan Assessment & Plan narrative: History of dysphagia though currently none and history of Collins's esophagus with strictures. Need for follow-up endoscopy and biopsy. Risks, benefits, alternatives have been explained.
--- NOTE | 2023-08-28 10:13 | PM.OP.EGD ---
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 Currently no dysphagia per need for follow-up. Last EGD 1 year ago. Surgeon: Di Ibrahim Procedure Notes Procedure in detail: After informed consent was obtained the patient was placed in left lateral decubitus position. The video upper scope placed into the oropharynx and with the patient's help swallowed into the esophagus. The esophagus stomach and duodenum were carefully examined. On withdrawal, retroflexed view the GE junction was performed. The scope was removed. The patient tolerated procedure well. Blood loss none Complications none Sedation mac Findings 1. Squamocolumnar junction at the site of a fairly wide open noninflamed stricture at 27 cm. 2. 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 Four-quadrant biopsies taken at 11/03/2028 and 31 cm. 3. Small sliding hiatal hernia 4. Streaky antral erythema previously biopsied and negative for Helicobacter 5. Normal duodenal bulb and sweep Will follow up on patient biopsies. He will need follow-up EGD in 1 year. He requests a medication refill and also a possible decrease in medication dosage. Given his long segment Barretts I would not decrease the dosage but we will refill his medication.
[2023-08-28 10:40] VITALS: BP 114/68; PULSE 50; RESP 21; TEMP 36.1; O2SAT 95
[2023-08-28 10:46] VITALS: BP 106/47; PULSE 46; RESP 20; O2SAT 96
[2023-08-28 10:50] VITALS: BP 107/61; PULSE 57; RESP 21; O2SAT 99
[2023-08-28 10:58] VITALS: BP 119/87; PULSE 60; RESP 20; TEMP 36.1; O2SAT 95
[2023-08-28 11:01] VITALS: BP 129/67; PULSE 50; RESP 24; O2SAT 99
== END 2023-08-28 11:14 | disposition home or self-care (01) ==
PROVIDERS: PCP Family Medicine; Referring Provider Internal Medicine Gastroenterology; Visit Provider Internal Medicine Gastroenterology
PROC: 0DJ08ZZ Inspection of Upper Intestinal Tract, Via Natural or Artificial Opening Endoscopic (ICD-10-PCS; CPT 43235; principal; 2023-08-28 10:00)
DX: Z87.19 Personal history of other diseases of the digestive system (principal); Z09 Encounter for follow-up examination after completed treatment for conditions other than malignant neoplasm; K22.70 Barrett's esophagus without dysplasia; K44.9 Diaphragmatic hernia without obstruction or gangrene
CPT/HCPCS: 43239; J2704

== ENCOUNTER → 2023-11-07 07:23 | Outpatient (CLI) | payer OTHER, SELFPAY ==
[2023-11-07 07:59] LABS: Add Manual Diff / Slide Review NO; Basophils Absolute Auto 0 /uL (0-100); Basophils Percent Auto 0.9 % (0-2); Eosinophils Absolute Auto 200 /uL (0-450); Eosinophils Percent Auto 3.6 % (2-4); Hematocrit 42.6 % (41-53); Hemoglobin 14.5 g/dL (13.5-17.5); Lymphocytes Absolute Auto 1300 /uL (1100-4500); Lymphocytes Percent Auto 26.6 % (25-40); Mean Corpuscular HGB Conc 33.9 % (30-36); Mean Corpuscular Hemoglobin 33.6 PG (26-34); Monocytes Absolute Auto 700 /uL (0-900); Monocytes Percent Auto 13.3 % (3-14); Neutrophils Absolute Auto 2800 /uL (1500-7000); Neutrophils Percent Auto 55.6 % (50-75); Platelet Count 192 X10^3/uL (150-400); Red Cell Distribution Width 13.5 % (11.6-14.8); White Blood Cell Count 5.1 X10^3/uL (4.5-11.0)
[2023-11-07 09:06] LABS: Alanine Aminotransferase 35 IU/L (<50); Albumin 4.2 g/dL (3.5-5.0); Albumin Globulin Ratio 1.6 (1.0-2.8); Alkaline Phosphatase 58 U/L (38-126); Aspartate Aminotransferase 32 IU/L (17-59); BUN Creatinine Ratio 25.3 (6-22); Blood Urea Nitrogen 25 mg/dL (9-20); Calcium 9.5 mg/dL (8.4-10.2); Carbon Dioxide 25 mmol/L (22-32); Chloride 102 mmol/L (98-107); Estimated Glomerular Filt Rate > 60 mL/min (>60); Globulin 2.7 g/dL (1.7-4.1); Glucose 118 mg/dL (80-110); HEMOLYSIS < 15 (0-50); Lactate Dehydrogenase 203 U/L (120-246); Potassium 4.6 mmol/L (3.4-5.1); Sodium 135 mmol/L (137-145); Total Protein 6.9 g/dL (6.3-8.2)
[2023-11-08 17:36] LABS: Free Kappa Lt Chains, Serum 113.9 mg/L (3.3-19.4); Free Lambda Lt Chains,Serum 19.9 mg/L (5.7-26.3)
[2023-11-09 12:37] LABS: Immunoglobulin A, Serum 258 mg/dL (61-437); Immunoglobulin G,Serum 1139 mg/dL (603-1613); Immunoglobulin M, Serum 47 mg/dL (15-143)
[2023-11-09 14:12] LABS: Albumin 3.6 g/dL (2.9-4.4); Alpha-1-Globulin 0.2 g/dL (0.0-0.4); Alpha-2-Globulin 0.7 g/dL (0.4-1.0); Gamma Globulin 1.1 g/dL (0.4-1.8); Protein, Total 6.6 g/dL (6.0-8.5)
== END ==
PROVIDERS: PCP Family Medicine; Referring Provider Internal Medicine Hematology & Oncology; Visit Provider Internal Medicine Hematology & Oncology
DX: D47.2 Monoclonal gammopathy (principal)
CPT/HCPCS: 36415; 80053; 82232; 82784; 83615; 83883; 84155; 84165; 85025; 86334

== ENCOUNTER → 2024-01-16 07:52 | Outpatient (CLI) | payer OTHER, SELFPAY ==
[2024-01-16 09:59] LABS: Alanine Aminotransferase 31 IU/L (<50); Albumin 4.3 g/dL (3.5-5.0); Albumin Globulin Ratio 1.6 (1.0-2.8); Alkaline Phosphatase 61 U/L (38-126); Aspartate Aminotransferase 33 IU/L (17-59); BUN Creatinine Ratio 14.3 (6-22); Bilirubin Total 1.4 mg/dL (0.2-1.3); Blood Urea Nitrogen 14 mg/dL (9-20); Carbon Dioxide 27 mmol/L (22-32); Chloride 99 mmol/L (98-107); Cholesterol 163 mg/dL (140-199); Estimated Glomerular Filt Rate > 60 mL/min (>60); Globulin 2.7 g/dL (1.7-4.1); Glucose 107 mg/dL (80-110); HDL Cholesterol 72 mg/dL (40-60); HEMOLYSIS < 15 (0-50); LDL Cholesterol Calculated 75 mg/dL (<100); Potassium 4.4 mmol/L (3.4-5.1); Sodium 134 mmol/L (137-145); Triglycerides 80 mg/dL (35-150)
[2024-01-16 10:28] LABS: Prostate Specific Antigen Scrn 1.19 ng/mL (0.1-4.0)
[2024-01-17 04:09] LABS: Apolipoprotein B 67 mg/dL (<90)
== END ==
PROVIDERS: PCP Family Medicine; Referring Provider Family Medicine; Visit Provider Family Medicine
DX: E78.2 Mixed hyperlipidemia (principal); Z12.5 Encounter for screening for malignant neoplasm of prostate; I10 Essential (primary) hypertension
CPT/HCPCS: 36415; 80053; 80061; 82172; G0103

== ENCOUNTER → 2024-06-26 10:30 | Outpatient (CLI) | payer OTHER, SELFPAY ==
[2024-06-26 10:52] LABS: Add Manual Diff / Slide Review NO; Basophils Absolute Auto 100 /uL (0-100); Basophils Percent Auto 1.5 % (0-2); Eosinophils Absolute Auto 200 /uL (0-450); Eosinophils Percent Auto 3.6 % (2-4); Hematocrit 44.4 % (41-53); Hemoglobin 14.8 g/dL (13.5-17.5); Lymphocytes Absolute Auto 1300 /uL (1100-4500); Lymphocytes Percent Auto 24.4 % (25-40); Mean Corpuscular HGB Conc 33.4 % (30-36); Mean Corpuscular Hemoglobin 33.6 PG (26-34); Mean Corpuscular Volume 100.4 fL (80-100); Monocytes Absolute Auto 600 /uL (0-900); Monocytes Percent Auto 10.5 % (3-14); Neutrophils Absolute Auto 3200 /uL (1500-7000); Platelet Count 171 X10^3/uL (150-400); Red Blood Cell Count 4.42 X10^6/uL (4.5-5.9); Red Cell Distribution Width 13.9 % (11.6-14.8); White Blood Cell Count 5.4 X10^3/uL (4.5-11.0)
[2024-06-26 11:04] LABS: Alanine Aminotransferase 36 IU/L (<50); Albumin 4.4 g/dL (3.5-5.0); Albumin Globulin Ratio 1.3 (1.0-2.8); Alkaline Phosphatase 61 U/L (38-126); Aspartate Aminotransferase 40 IU/L (17-59); BUN Creatinine Ratio 17.3 (6-22); Bilirubin Total 1.4 mg/dL (0.2-1.3); Blood Urea Nitrogen 19 mg/dL (9-20); Calcium 10.1 mg/dL (8.4-10.2); Carbon Dioxide 26 mmol/L (22-32); Chloride 100 mmol/L (98-107); Estimated Glomerular Filt Rate > 60 mL/min (>60); Globulin 3.3 g/dL (1.7-4.1); Glucose 120 mg/dL (80-110); HEMOLYSIS < 15 (0-50); Lactate Dehydrogenase 204 U/L (120-246); Potassium 4.7 mmol/L (3.4-5.1); Sodium 135 mmol/L (137-145); Total Protein 7.7 g/dL (6.3-8.2)
[2024-06-27 16:36] LABS: Free Lambda Lt Chains,Serum 19.8 mg/L (5.7-26.3)
[2024-06-28 17:36] LABS: Albumin 3.7 g/dL (2.9-4.4); Alpha-1-Globulin 0.3 g/dL (0.0-0.4); Alpha-2-Globulin 0.8 g/dL (0.4-1.0); Gamma Globulin 1.2 g/dL (0.4-1.8); Globulin Total 3.2 g/dL (2.2-3.9); Immunoglobulin A, Serum 272 mg/dL (61-437); Immunoglobulin G,Serum 1173 mg/dL (603-1613); Immunoglobulin M, Serum 53 mg/dL (15-143); Protein, Total 6.9 g/dL (6.0-8.5)
== END ==
PROVIDERS: PCP Family Medicine; Referring Provider Nurse Practitioner Gerontology; Visit Provider Nurse Practitioner Gerontology
DX: D47.2 Monoclonal gammopathy (principal)
CPT/HCPCS: 36415; 80053; 82784; 83615; 83883; 84155; 84165; 85025; 86334

== ENCOUNTER → 2024-12-24 10:32 | Outpatient (CLI) | payer OTHER, SELFPAY ==
[2024-12-24 10:59] LABS: Add Manual Diff / Slide Review NO; Hematocrit 41.5 % (41-53); Hemoglobin 14.3 g/dL (13.5-17.5); Lymphocytes Absolute Auto 1200 /uL (1100-4500); Mean Corpuscular HGB Conc 34.4 % (30-36); Mean Corpuscular Hemoglobin 34.7 PG (26-34); Mean Corpuscular Volume 101.0 fL (80-100); Platelet Count 180 X10^3/uL (150-400)
[2024-12-24 11:17] LABS: Alanine Aminotransferase 50 IU/L (<50); Albumin 4.5 g/dL (3.5-5.0); Albumin Globulin Ratio 2.0 (1.0-2.8); Alkaline Phosphatase 66 U/L (38-126); Blood Urea Nitrogen 17 mg/dL (9-20); Calcium 10.1 mg/dL (8.4-10.2); Carbon Dioxide 24 mmol/L (22-32); Chloride 99 mmol/L (98-107); Estimated Glomerular Filt Rate > 60 mL/min (>60); Globulin 2.3 g/dL (1.7-4.1); Glucose 109 mg/dL (70-99); HEMOLYSIS < 15 (0-50); Potassium 4.7 mmol/L (3.4-5.1); Sodium 134 mmol/L (137-145); Total Protein 6.8 g/dL (6.3-8.2)
[2024-12-25 16:36] LABS: Free Kappa Lt Chains, Serum 115.2 mg/L (3.3-19.4); Free Lambda Lt Chains,Serum 17.6 mg/L (5.7-26.3)
[2024-12-26 15:12] LABS: Albumin 3.7 g/dL (2.9-4.4); Alpha-1-Globulin 0.2 g/dL (0.0-0.4); Alpha-2-Globulin 0.8 g/dL (0.4-1.0); Gamma Globulin 1.2 g/dL (0.4-1.8); Immunoglobulin G,Serum 1052 mg/dL (603-1613)
== END ==
PROVIDERS: PCP Family Medicine; Referring Provider Internal Medicine Hematology & Oncology; Visit Provider Internal Medicine Hematology & Oncology
DX: D47.2 Monoclonal gammopathy (principal)
CPT/HCPCS: 36415; 80053; 82232; 82784; 83615; 83883; 84155; 84165; 85025; 86334